=== PATIENT | male | born 1955 | race Caucasian/White ===

== ENCOUNTER 2024-03-21 19:03 | Emergency (ER) | payer OTHER ==
[~2024-03-21] VITALS: Ht 175.3 cm; Wt 71.2 kg
[2024-03-21] MEDS ORDERED: LIDOCAINE HCL 2% 20 ML VIAL ONE (20:27)
[2024-03-21] MEDS: LIDOCAINE HCL 2% 20 ML VIAL IJ ONE (20:28)
[2024-03-21 21:27] VITALS: BP 136/90; TEMP 98; O2SAT 99
== END 2024-03-21 21:28 | disposition home or self-care (01) ==
LOC: ER 19:08
DX: S63.287A Dislocation of proximal interphalangeal joint of left little finger, initial encounter (principal); Z88.0 Allergy status to penicillin; W23.0XXA Caught, crushed, jammed, or pinched between moving objects, initial encounter; Y93.67 Activity, basketball; Y92.89 Other specified places as the place of occurrence of the external cause; Y99.8 Other external cause status
CPT/HCPCS: 99284; 26770; 73140 ×2; J3490; A4606; A4663